=== PATIENT | female | born 2000 | race American Indian/Alaskan Native ===

== ENCOUNTER 2019-10-11 19:55 | Inpatient (IN) | payer MEDICAID ==
[2019-10-11] MEDS ORDERED: LACTATED RINGERS 1,000 ML ONE (20:09)
[2019-10-11] MEDS ORDERED: OXYTOCIN 20 UNIT/1000ML DRIP 20,000 MILLIUNITS/1,000 ML BAG IV ONE (20:09)
[2019-10-11] MEDS ORDERED: LIDOCAINE (2%) 20 MG/1 ML VIAL 20 ML MDV INFILTRATI ONE ×2 (20:13→21:46)
[2019-10-11] MEDS ORDERED: METHYLERGONOVINE MALEATE 0.2 MG/ML VIAL IM ONE (20:21)
[2019-10-11] MEDS ORDERED: ePHEDrine SULFATE 50 MG/1 ML INJ IV PRN (21:46)
[2019-10-11] MEDS ORDERED: MINERAL OIL 30 ML ORAL LIQD PO PRN (21:46)
[2019-10-11] MEDS ORDERED: TERBUTALINE 1 MG/1 ML INJ SUB-Q PRN (21:46)
[2019-10-11] MEDS ORDERED: MAGNESIUM HYDROXIDE (MOM) ORAL LIQD UDC PO PRN (21:47)
[2019-10-11] MEDS ORDERED: WITCH HAZEL/ GLYCERIN PAD TP PRN (21:47)
[2019-10-11] MEDS ORDERED: LANOLIN/ZINC/DIMETHICONE (LANSINOH) 7 GM TP PRN (21:47)
[2019-10-11] MEDS ORDERED: HYDROcodone/ACETAMINOPHEN 5-325 MG TAB PO PRN (21:47)
[2019-10-11] MEDS ORDERED: IBUPROFEN 600 MG TAB PO SCH (22:00)
[2019-10-11] MEDS ORDERED: OXYTOCIN 20 UNIT/1000ML DRIP 20 UNITS/1,000 ML BAG IV SCH (22:00)
[2019-10-11] MEDS ORDERED: LACTATED RINGERS 1,000 ML IV SCH (22:00)
[2019-10-12] MEDS ORDERED: IBUPROFEN ORAL LIQD 100 MG/5 ML ORAL.LIQD PO SCH
--- NOTE | 2019-10-12 00:03 | Procedure Note ---
OB Delivery Note - Delivery Date of Delivery: 10/11/19 Surgeon: MOISES ELENA Estimated blood loss: 500cc - Vaginal Delivery presentation: vertex Delivery position: OA Intrapartum events: hemorrhage Delivery induction: none Delivery placenta: spontaneous Delivery cord: 3 umbilical vessels Episiotomy: none Delivery laceration: none Anesthesia: none Delivery comments: Spontaneous vaginal delivery at 20:10 of liveborn female over intact perineum with apgars of 8/9. Precipitous vaginal delivery; patient was delivering as soon as she came into labor room. Meconium stained amniotic fluid; NICU called to delivery. Baby was vigorous at and was placed skin to skin with mom immediately after . Spontaneous cry and respirations. Baby was bulb suctioned and dried. 3 vessel cord double clamped and cut and baby was taken to radiant warmer for further suctioning. Spontaneous delivery of intact placenta and membranes at 20:15 by rivera mechanism. EBL 500 cc. Patient received fundal massage, bimanual compression, IV Pitocin, and rectal Cytotec 800 mcg. Bleeding slowed to scant and fundus firmed. No lacerations noted. Vaginal sweep negative. Sponge count correct. Mother and baby stable. Stat H&H ordered; will repeat in AM.
--- NOTE | 2019-10-12 00:03 | History and Physical Report ---
History of Present Illness Date of examination: 10/11/19 Date of admission: 10/11/19 20:08 Chief complaint: Contractions, need to push. History of present illness: 18 year old presents to L&D with complaint of contractions and needing to push. Patient arrived in labor room completely dilated and +2 station with strong urge to push. Patient reports water is leaking and fluid is noted to be meconium stained. Patient received care at [facility] and records are not available but was able to look up records on computer (unable to print them). LMP 02/01/19. EDC 10/13/2019. significant for the following: anemia (supplemented with iron), late presentation for care, enlarged thyroid (thyroid labs normal), close spacing, vitamin D deficiency (supplemented with vitamin D), and UTI (treated and cured). labs are as follows: A+, antibody screen negative, rubella nonimmune, hepatitis B surface antigen negative, HIV negative, RPR nonreactive, varicella immune, GBS positive, 1 hour sugar test 123, horizon negative, panorama low risk. Unable to locate GC/CT result. Will order this here in hospital. 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 denies: smoking, alcohol abuse, prescription drug abuse, IV drug use - Obstetrical History Expected Date of Delivery: 10/13/19 Actual Gestation: 39 Week(s) 6 Day(s) : 2 Para: 1 Hx # Term Pregnancies: 1 Number of Pregnancies: 0 Spontaneous Abortions: 0 Induced : 0 Number of Living Children: 1 Medications and Allergies Allergies Allergy/AdvReac Type Severity Reaction Status Date / Time No Known Allergies Allergy Unverified 10/11/19 21:25 Home Medications Medication Instructions Recorded Confirmed Last Taken Type No Known Home Medications [No 10/11/19 10/11/19 Unknown History Reported Home Medications] Active Meds: Active Medications Acetaminophen/Hydrocodone Bitart ([place] 5/325) 2 each PO Q6H PRN PRN Reason: Pain, Moderate (4-6) Ibuprofen (Motrin) 600 mg PO Q6HR TREMAYNE Ibuprofen (Motrin) 600 mg PO Q6H PRN PRN Reason: Pain, Mild (1-3) Magnesium Hydroxide (Milk Of Magnesia) 30 ml PO HS PRN PRN Reason: Constipation Multi-Ingredient Ointment (Lansinoh) 1 applic TP PRN PRN PRN Reason: Sore Nipples Sodium Chloride (Sodium Chloride Flush Syringe 10 Ml) 10 ml IV PRN NR Stop: 10/12/19 21:59 Witch Heidi/Glycerin (Tucks Pad) 1 each TP PRN PRN PRN Reason: Hemorrhoid/cleansing/soothing Review of Systems All systems: negative (contractions) - Vital Signs Vital signs: Vital Signs Temp Pulse Resp BP 98.3 F 105 H 20 139/64 10/11/19 20:25 10/11/19 20:25 10/11/19 20:25 10/11/19 20:25 Temp Pulse Resp BP Pulse Ox 98.3 F 108 H 20 130/59 10/11/19 20:25 10/11/19 22:30 10/11/19 20:25 10/11/19 22:30 - Physical Exam Abdomen: Positive: normal appearance, soft. Negative: distention, tenderness, guarding, rigidity Genitourinary (Female): Positive: normal external genitalia, normal perenium. Negative: perineal/vulvar lesions (no lesions noted) Vagina: Positive: other (meconium stained amniotic fluid) Uterus: Positive: enlarged (S=D) Anus/Rectum: Positive: normal perianal skin Extremities: Positive: normal. Negative: tenderness, edema - Obstetrical Cervical Dilatation: 10 Cervical Effacement Percentage: 100 station: +2 Uterine Contraction Pattern: Regular Uterine Contraction Intensity: Moderate Results Result Diagrams: 10/11/19 22:47 All other labs normal. Assessment and Plan A: Term . Active labor with complete cervical dilation and delivery upon admission. Meconium stained amniotic fluid. P: Admit. Precipitous vaginal delivery at time of presentation. NICU to attend delivery.
[2019-10-12] MEDS: IBUPROFEN ORAL LIQD 100 MG/5 ML ORAL.LIQD PO PRN ×2 (00:32→23:18)
[2019-10-12 00:53] LABS: Basophils % (Auto) 0.2 % (0.0-1.8); Eosinophils % (Auto) 0.1 % (0.0-4.3); Hemoglobin 7.7 gm/dl (10.1-14.3); Lymphocytes # (Auto) 0.8 K/mm3 (1.2-5.4); Lymphocytes % (Auto) 8.4 % (13.4-35.0); Mean Corpuscular HGB Conc 31 % (30-34); Monocytes # (Auto) 0.6 K/mm3 (0.0-0.8); Monocytes % (Auto) 6.2 % (0.0-7.3); Platelet Count 181 K/mm3 (140-440); Red Blood Count 3.88 M/mm3 (3.65-5.03); Red Cell Distribution Width 19.3 % (13.2-15.2)
[2019-10-12 01:01] LABS: Mean Corpuscular Volume 64 fl (79-97)
[2019-10-12 01:18] LABS: Uric Acid 3.8 mg/dL (3.5-7.6)
[2019-10-12 01:20] LABS: Alanine Aminotransferase 6 units/L (7-56); Albumin 3.4 g/dL (3.9-5); BUN/Creatinine Ratio 22; Blood Urea Nitrogen 11 mg/dL (7-17); Calcium 8.6 mg/dL (8.4-10.2); Hemolysis Index 2
[2019-10-12 06:53] LABS: Bilirubin,Urine NEG (Negative); Blood,Urine LG (Negative); Color,Urine Red (Yellow); Mucus,Urine 2+ /HPF; Urobilinogen,Urine < 2.0 mg/dL (<2.0)
[2019-10-12 06:54] LABS: RBC,Urine > 182.0 /HPF (0.0-6.0); WBC,Urine > 182.0 /HPF (0.0-6.0)
[2019-10-12 09:25] LABS: Hemoglobin 7.2 gm/dl (10.1-14.3)
[2019-10-12] MEDS: FERROUS SULFATE 325 MG TAB PO SCH ×2 (10:25→21:59)
[2019-10-12] MEDS: DOCUSATE SODIUM 100 MG CAP PO SCH ×2 (10:25→21:59)
--- NOTE | 2019-10-13 19:12 | Progress Note ---
Assessment and Plan A: S/P . Anemia secondary to and blood loss. Possible UTI: urine C&S pending. P: Continue iron supplementation TID. Repeat CBC in AM. Get urine culture results to chart. Patient is not symptomatic and desires iron alone as treatment for anemia at this time. Subjective - Subjective Date of service: 10/13/19 Principal diagnosis: S/P ; anemia Interval history: S/P . Anemic, on oral iron TID. Urine culture pending (sent yesterday). CBC to be repeated in the morning. Patient is voiding without difficulty, ambulating well, tolerating a regular diet. Patient reports small amount of lochia and denies clots. Patient denies headache, dizziness, weakness, chest pain, shortness of breath, leg pain, abdominal pain, heavy bleeding, or any other problems. Patient reports: appetite normal, voiding normally, pain well controlled, flatus, ambulating normally, no dizzy ambulation, no nauseated [place]: doing well Objective - Vital Signs Latest vital signs: Vital Signs Temp Pulse Resp BP Pulse Ox 10/13/19 15:21 97.9 F 74 16 103/54 100 10/13/19 07:42 97.8 F 82 20 109/56 98 10/12/19 23:52 97.7 F 103 H 20 110/53 100 Intake and Output 10/13/19 10/13/19 10/13/19 07:59 15:59 23:59 Intake Total 480 600 240 Balance 480 600 240 Intake: Oral 480 600 240 Other: Total, Intake Amount 240 240 240 # Voids Void 1 1 1 - Exam Cardiovascular: Present: Regular rate, Normal S1, Normal S2 Lungs: Present: Clear to auscultation Abdomen: Present: normal appearance, soft. Absent: distention, tenderness, guarding, rigidity Uterus: Present: normal, firm, fundal height below umbilicus. Absent: bogginess, tenderness Extremities: Present: normal. Absent: tenderness, edema
[2019-10-13] MEDS: AMOXICILLIN/K CLAV 500/125MG TAB PO SCH (20:52)
[2019-10-13] MEDS: FERROUS SULFATE 325 MG TAB PO SCH (21:11)
[2019-10-13] MEDS: DOCUSATE SODIUM 100 MG CAP PO SCH (21:12)
[2019-10-14 08:09] LABS: Basophils % (Auto) 0.8 % (0.0-1.8); Eosinophils # (Auto) 0.4 K/mm3 (0.0-0.4); Eosinophils % (Auto) 5.8 % (0.0-4.3); Hematocrit 22.2 % (30.3-42.9); Hemoglobin 6.9 gm/dl (10.1-14.3); Lymphocytes # (Auto) 2.1 K/mm3 (1.2-5.4); Lymphocytes % (Auto) 34.2 % (13.4-35.0); Mean Corpuscular HGB Conc 31 % (30-34); Monocytes # (Auto) 0.5 K/mm3 (0.0-0.8); Monocytes % (Auto) 8.4 % (0.0-7.3); Platelet Count 223 K/mm3 (140-440); Red Blood Count 3.47 M/mm3 (3.65-5.03); Red Cell Distribution Width 19.4 % (13.2-15.2)
[2019-10-14] MEDS: DOCUSATE SODIUM 100 MG CAP PO SCH (08:09)
[2019-10-14] MEDS: FERROUS SULFATE 325 MG TAB PO SCH ×2 (08:09→14:46)
[2019-10-14] MEDS: AMOXICILLIN/K CLAV 500/125MG TAB PO SCH (08:09)
[2019-10-14 08:13] LABS: Mean Corpuscular Volume 64 fl (79-97)
--- NOTE | 2019-10-14 11:07 | Progress Note ---
Assessment and Plan - Patient Problems (1) Status post normal vaginal delivery Current Visit: Yes Status: Acute Plan to address problem: PPD 2 - stable Continue routine orders Discharge to home later today Follow-up at [facility] as needed or in 6 weeks for exam (2) Single live Current Visit: Yes Status: Acute (3) Anemia due to blood loss, acute Current Visit: Yes Status: Acute Plan to address problem: Asymptomatic Continue Ferrous sulfate 325mg PO TID Infed 100mg IM x1 ordered Repeat H&H ordered Subjective - Subjective Date of service: 10/14/19 Principal diagnosis: PPD #2; s/p Interval history: see H&P, OB Delivery Procedure Note and PP/DIRECTOR IT PROJECT Progress Note Patient reports: appetite normal, voiding normally, pain well controlled, ambulating normally, no dizzy ambulation [place]: doing well, other (breast and bottle feeding) Objective - Vital Signs Latest vital signs: Vital Signs Temp Pulse Resp BP BP Pulse Ox 10/14/19 08:39 97.3 F L 89 18 98/46 10/14/19 00:00 98.6 F 64 18 120/67 10/13/19 15:21 97.9 F 74 16 103/54 100 Intake and Output 10/13/19 10/14/19 10/14/19 23:59 07:59 15:59 Intake Total 240 500 480 Balance 240 500 480 Intake: Oral 240 200 480 Intake, Free Water 300 Other: Total, Intake Amount 240 200 480 # Voids Void 1 1 - Exam Cardiovascular: Present: Regular rate Lungs: Present: Clear to auscultation Abdomen: Present: normal appearance, soft Vulva: both: normal Uterus: Present: normal, firm, fundal height below umbilicus Extremities: Present: normal Comments: scant lochia - Labs Labs: Abnormal lab results 10/14/19 Range/Units 07:42 RBC 3.47 L (3.65-5.03) M/mm3 Hgb 6.9 L (10.1-14.3) gm/dl Hct 22.2 L (30.3-42.9) % MCV 64 L (79-97) fl MCH 20 L (28-32) pg RDW 19.4 H (13.2-15.2) % [place] % (Auto) 8.4 H (0.0-7.3) % Eos % (Auto) 5.8 H (0.0-4.3) %
--- NOTE | 2019-10-14 11:12 | Discharge Summary ---
Providers - Providers Date of Admission: 10/11/19 20:08 Date of discharge: 10/14/19 Attending physician: ZINA FERRARO MD Primary care physician: ZINA FERRARO MD Hospitalization Reason for admission: active labor, IUP at term Delivery: Episiotomy: none Laceration: none Other procedures: none complications: none Discharge diagnosis: IUP at term delivered baby: female Hospital course: Uncomplicated Condition at discharge: Stable Disposition: PR-01 TO HOME OR SELFCARE - Discharge Diagnoses (1) Status post normal vaginal delivery Status: Acute (2) Single live Status: Acute (3) Anemia due to blood loss, acute Status: Acute Comment: Asymptomatic s/p Infed 100mg IM x1 Continue iron therapy Eat iron-rich foods Plan - Discharge Medications Prescriptions: Docusate Sodium [Colace CAP] 100 mg PO BID #60 capsule Ferrous Sulfate [Feosol 325 MG tab] 325 mg PO TID #90 tablet - Provider Discharge Summary Activity: routine, no sex for 6 weeks, no heavy lifting 4 weeks, no strenuous exercise Diet: routine Instructions: routine Additional instructions: [] Smoking cessation referral if applicable(refer to patient education folder for contact #) [] Refer to [facility]'s [facility] Booklet Call your doctor immediately for: * Fever > 100.5 * Heavy vaginal bleeding ( >1 pad per hour) * Severe persistent headache * Shortness of breath * Reddened, hot, painful area to leg or breast * Drainage or odor from incision. * Keep incision clean and dry at all times and follow doctor's instructions regarding bathing/showering - Follow up plan Follow up: ZINA FERRARO MD [Primary Care Provider] - 6 Weeks (Follow-up at [facility] as needed or in 6 weeks for exam)
[2019-10-14] MEDS ORDERED: IRON DEXTRAN COMPLEX 100 MG/2 ML INJ IM SCH (12:00)
[2019-10-14 16:27] LABS: Hematocrit 24.3 % (30.3-42.9); Hemoglobin 7.5 gm/dl (10.1-14.3)
[2019-10-14 17:32] VITALS: BP 107/73
== END 2019-10-14 20:40 | disposition home or self-care (01) | DRG 774 ==
LOC: TRG 19:55 → LD 20:08 → OB 22:42
PROVIDERS: ADMIT Obstetrics & Gynecology; ATTEND Obstetrics & Gynecology
PROC: 10E0XZZ Delivery of Products of Conception, External Approach (ICD-10-PCS; principal; 2019-10-11)
DX: O62.3 Precipitate labor (principal); O72.1 Other immediate postpartum hemorrhage; O77.0 Labor and delivery complicated by meconium in amniotic fluid; O99.02 Anemia complicating childbirth; D62 Acute posthemorrhagic anemia; Z3A.39 39 weeks gestation of pregnancy; Z37.0 Single live birth
CPT/HCPCS: 36415; 80053; 81001; 83615; 84550; 85014; 85018; 85025; 86850; 86900; 86901; 87086; 87591; G0378; J1750; J2210; J2590; J7120

== ENCOUNTER 2021-10-25 16:57 | Emergency (ER) | payer MEDICAID | END 2021-10-27 04:09 | LOC: ED 16:57 | DX: M79.644 Pain in right finger(s) (principal); Z53.21 Procedure and treatment not carried out due to patient leaving prior to being seen by health care provider ==